=== PATIENT | female | born 1975 | race Caucasian/White ===

== ENCOUNTER → 2017-01-29 | Outpatient (CLI) | payer BC ==
[~2017-01-29] MED LIST: ADVAIR 250/501 DISK IH; ALBUTEROL17 GM IH; BUSPIRONE HCL30 MG PO; CYMBALTA60 MG PO; DEPAKOTE ER250 MG PO; DEPAKOTE250 MG PO; DEPAKOTE500 MG PO; DICLOFENAC SOD100 MG PO; DICYCLOMINE HCL20 MG PO; DIPHENHYDRAMINE50 MG PO; DOXEPIN HCL10 MG PO; ESCITALOPRAM OX20 MG PO; LEXAPRO20 MG PO; MOTRIN800 MG PO; PERCOCET 5/31 TABLET PO; PROMETHAZINE HC25 M1 PO; PROTONIX40 MG PO; SINEQUAN50 MG PO; TOPAMAX100 MG PO; TRAMADOL HCL50 MG PO; VENTOLIN HFA18 GM IH; ZIPRASIDONE HCL80 MG PO; ZOFRAN4 MG PO; ZYRTEC10 MG PO
== END | disposition home or self-care (01) ==
LOC: CDC 15:10
DX: R94.31 Abnormal electrocardiogram [ECG] [EKG] (principal); Z79.899 Other long term (current) drug therapy
CPT/HCPCS: 93000

== ENCOUNTER 2017-02-05 14:58 | Emergency (ER) | payer BC ==
[~2017-02-05] VITALS: Ht 162.6 cm; Wt 73.0 kg
[2017-02-05] MEDS ORDERED: FIORICET,ESG1 TABLET PO (17:13)
[2017-02-05 17:54] VITALS: BP 112/56
== END 2017-02-05 18:00 | disposition home or self-care (01) ==
LOC: EME 14:58
DX: G43.909 Migraine, unspecified, not intractable, without status migrainosus (principal); Z87.442 Personal history of urinary calculi; Z87.891 Personal history of nicotine dependence
CPT/HCPCS: 99281; 99285; J1100; J1200; J1885; J2765; J7030